=== PATIENT | male | born 1960 | race Caucasian/White ===

== ENCOUNTER 2019-09-29 10:33 | Inpatient (IN) ==
[2019-09-29] MEDS ORDERED: ASPIRIN PO ONE (10:42)
[2019-09-29] MEDS ORDERED: CARDIZEM ONE (10:46)
[2019-09-29] MEDS ORDERED: NS 1,000 ML ONE (10:47)
[2019-09-29] MEDS ORDERED: NS 1,000 ML IV ONE (10:55)
[2019-09-29] MEDS ORDERED: CARDIZEM IV ONE ×2 (10:58→11:05)
--- NOTE | 2019-09-29 11:01 | PROVIDER DOCUMENTATION ---
This chart was entered by Adrienne Ragsdale Scribe, acting as scribe for Timi Love MD. HPI-Cardiac General - General Chief Complaint: Palpitations Stated Complaint: SOB Time Seen by Provider: 09/29/19 10:52 Source: patient Allergies/Adverse Reactions: Patient Allergies Allergy/AdvReac Type Severity Reaction Status Date / Time No Known Allergies Allergy Verified 09/29/19 13:06 Home Medications: Home Medication List Medication Instructions Recorded Confirmed Last Taken Type Acetaminophen [Tylenol] 650 mg PO Q6H PRN PRN tab 09/30/19 Unknown Rx Aspirin EC 81 mg PO DAILY #90 tab 09/30/19 Unknown Rx Diltiazem C.d. [Cardizem Cd] 120 mg PO DAILY #90 cap 09/30/19 Unknown Rx - History of Present Illness-Cardiac Nature of Presenting Problem: 59 yowm presents to the ed with c/o 5 days of intermittent rt anterior chest pain under breast dull, sob and palpitations. pt sts dr chu done a stress test and echo 1 month prior and was told everything was normal. pt denies having past palpitations Location: reports: other (rt anterior under breast) Quality of Pain: reports: dull Severity in ED: moderate Onset/Duration: 5 days ago Timing: still present, intermittent Context/Activities at Onset: reports: light activity Modifying Factors: improves with: nothing. worse with: lying down Palpitation Quality: fast/pounding heart beat History of arrythmia: reports: none Recent use of:: reports: caffeine Nitro Today/Relief: reports: no nitro taken today Aspirin Treatment Today: reports: 325 mg x 1, provided by ED Prior Chest Pain/Cardiac Workup: reports: echocardiography, stress test Associated Symptoms: reports: shortness of breath. denies: back pain, diaphoresis, dizziness, fever/chills, nausea, vomiting Similar Symptoms Previously?: No Recently Seen Here or By Another Healthcare Provider: Yes (dr chu 1 month prior ) Review of Systems - Adult - REVIEW OF SYSTEMS - ADULT Constitutional: denies: chills, fever Eyes: reports: no symptoms reported Ears, Nose, Mouth & Throat: reports: no symptoms reported Cardiovascular: reports: see HPI, chest pain, palpitations. denies: edema, syncope Respiratory: reports: see HPI, shortness of breath. denies: cough, wheezing Gastrointestinal: denies: diarrhea, nausea, vomiting Genitourinary: reports: no symptoms reported Musculoskeletal: denies: back pain, neck pain Integumentary: reports: no symptoms reported Neurological: denies: dizziness/vertigo, headache/migraines Psychiatric: reports: no symptoms reported Endocrine: reports: no symptoms reported Hematologic/Lymphatic: reports: no symptoms reported Allergic/Immunologic: reports: no symptoms reported All Other Systems: Reviewed and Negative Past History - Adult - PAST MEDICAL HISTORY-ADULT Review of Records: reports: Old Records Reviewed, Nursing Assessment Review, Medications Reviewed, Social history reviewed & non-contributory. Major Childhood Illnesses: reports: denies history Cardiovascular: reports: denies history Respiratory: reports: denies history Gastrointestinal: reports: GERD Genitourinary: reports: denies history Musculoskeletal: reports: denies history Neurological: reports: denies history Psychiatric: reports: denies history Endocrine/Immune: reports: denies history Other Conditions: reports: denies history - PRIOR SURGERIES/PROCEDURES Surgical/Procedure History: reports: reviewed, not pertinent - IMMUNIZATION STATUS Childhood Immunizations: See Nurse Assessment Flu Vaccine: See Nurse Assessment - FAMILY HISTORY Family History: reviewed, not pertinent - SOCIAL HISTORY Smoking: denies Substance Use: denies Living Situation: family Physical Exam-General - PHYSICAL EXAM-ADULT Initial Vital Signs Reviewed: Yes - CONSTITUTIONAL General Appearance: appears well, alert, mild distress - EYES Eyes: PERRL/EOMI, pink conjunctivae - HEAD, EARS, NOSE, MOUTH & THROAT HENMT: moist mucous membranes, other (no teeth) - NECK Neck: non-tender, full range of motion, supple, normal inspection - RESPIRATORY Respiratory: normal breath sounds, no pleuratic chest pain, no respiratory distress, no accessory muscle use - CARDIOVASCULAR Cardiovascular: other (aflutter 151) - CHEST (BREASTS) Chest/Breast: deferred - GASTROINTESTINAL (ABDOMEN) Abdominal Exam: normal bowel sounds, non tender, soft - GENITOURINARY Male Genitalia: deferred Rectal Exam: deferred Hemoccult Exam: deferred - LYMPHATIC Lymphatic: no adenopathy - MUSCULOSKELETAL Back Exam: no CVA tenderness, no vertebral tenderness Extremity: normal range of motion, non-tender, normal gait, normal inspection - SKIN Integumentary: normal color, normal turgor, warm/dry - NEUROLOGIC Neurologic: grossly normal - PSYCHIATRIC Psych/Mental Status: normal mood/affect, normal thought content, normal thought process, oriented x 3 Progress - PLAN OF CARE/RESULTS Progress/Plan/Lab Results: Orders Category Date Time Status Admit - [facility] Routine AdmDCTranf 09/29/19 12:33 Active Cardiac Monitoring DIRECTED Care 09/29/19 10:43 Completed DVT/PE Risk Assess/Protocol [QM] ORDERED Care 09/29/19 12:33 Completed Intake and Output-Strict ORDERED Care 09/29/19 12:33 Completed Oxygen Therapy- ED Nursing DIRECTED Care 09/29/19 10:43 Completed Saline Loc NOW Care 09/29/19 10:43 Completed Vital Signs Order Q 8-HR ASSESS Care 09/29/19 12:33 Completed Z-Document. for Tele Applied ORDERED Care 09/29/19 12:35 Completed Heart Healthy Diet Diet 09/29/19 12:34 Completed CHEST-PORTABLE [RAD] Stat Exams 09/29/19 10:44 Completed CBC WITH ELECTRONIC DIFF [HEME] Stat Lab 09/29/19 10:57 Completed CBC WITH NO DIFF [HEME] Routine Lab 09/30/19 05:19 Completed CK PROFILE [SP CHEM] Stat Lab 09/29/19 10:57 Completed CK PROFILE [SP CHEM] Stat Lab 09/29/19 16:00 Completed COMPREHENSIVE METABOLIC PANEL [CHEM] Routine Lab 09/30/19 05:19 Completed COMPREHENSIVE METABOLIC PANEL [CHEM] Stat Lab 09/29/19 10:57 Completed MAGNESIUM [CHEM] Routine Lab 09/30/19 05:19 Completed MAGNESIUM [CHEM] Stat Lab 09/29/19 10:57 Completed PRO B-NATRIURETIC PEPTIDE Stat Lab 09/29/19 10:57 Completed PROTIME WITH INR [COAG] Stat Lab 09/29/19 10:57 Completed PTT [COAG] Stat Lab 09/29/19 10:57 Completed TROPONIN T HIGH SENSITIVITY Routine Lab 09/29/19 16:00 Completed TROPONIN T HIGH SENSITIVITY Stat Lab 09/29/19 10:57 Completed TSH Routine Lab 09/30/19 05:19 Completed 0.9% Sodium Chloride Inj [Ns] 1,000 ml Med 09/29/19 10:47 Discontinued .ROUTE As directed 0.9% Sodium Chloride Inj [Ns] 1,000 ml Med 09/29/19 10:55 Discontinued IV 999 mls/hr Aspirin Med 09/29/19 10:42 Discontinued 325 mg PO NOW ONE Diltiazem [Cardizem] Med 09/29/19 10:58 Discontinued 15 mg IV NOW ONE Diltiazem [Cardizem] Med 09/29/19 10:46 Discontinued 25 mg .ROUTE .STK-MED ONE Diltiazem [Cardizem] Med 09/29/19 11:05 Discontinued 5 mg IV NOW ONE Enoxaparin [Lovenox] Med 09/29/19 12:45 Discontinued 40 mg SUBQ Q24H CP/SOB/Palp >45 yrs of Age Stat Oth 09/29/19 10:42 Ordered Telemetry [OM.EQ] Routine Oth 09/29/19 12:33 Active EKG [EKG] Stat Ther 09/29/19 10:43 Draft Transfer/Admit Order [TRANSFER] Routine Transfer 09/29/19 12:35 Completed Result Diagrams: 09/30/19 05:19 09/30/19 05:19 - REASSESSMENT Reassessment #1 Time Reassessed: 11:23 Status: improving Reassessment Comment: dr love at bedside - EKG 1 Time of EKG reading by physician:: 10:46 EKG Read and Signed by:: Timi Love EKG Interpretation (*Must complete 3 of following elements*): Abnormal Rate: 150 Rhythm: atrial flutter w/2:1 AV conduction [place]: normal QRS: other (nonspecific intraventricular conduction delay) [place] Interval: normal Comments: nonspecific ST abnormality 2 Time of EKG reading by physician:: 11:17 EKG Read and Signed by:: Timi Love EKG Interpretation (*Must complete 3 of following elements*): Normal Rate: 72 Rhythm: sinus rhythm w/pac with aberrant conduction [place]: normal QRS: normal [place] Interval: normal ST Wave: normal Prior EKG Comparison: changes noted - XRAY 1 XRAY: Bilateral XRAY Study: Chest Impression: See EMR Report (IMPRESSION: Cardiomegaly. Mild increased interstit ial markings may be fibrosis. Electronically signed by Inder Wilburn 09/29/2019 11:12 AM) - CONSULTS/PCP/HOSPITALIST Notification #1 *Consult/PCP/Hospitalist*: dr chu cardiology Time Discussed: 11:09 Reason/Comments: phone consult #2 Consult: dr suarez hospitalist Time Discussed: 11:40 (is in ed at bedside) Consult Disposition: Will see in ED, Admit Departure - Departure Date of Disposition Decision: 09/28/19 Time of Disposition Decision: 04:20 DIAGNOSIS: Atypical chest pain Disposition: HOME 01 Certified Medical Emergency: Emergent Condition: Good - Critical Care Note This patient required my direct & personal management of CC.: Yes Total Time (mins): 37 Critical Care Statement: This patient required my direct personal management to treat or rule out processes, the absence of which, could potentiallly result in sudden, clinically significant life or limb threatening deterioration. Attestation - Physician/ DARIO Attestation Patient care was provided by Advanced Practice Provider:: No The physician spent face to face time with patient:: Yes Advanced Practice Provider documentation review:: Supervising physician onsite and consulted in the evaluation and care of this patient. The physician did have a face to face encounter with the patient. This chart was documented by the indicated scribe, (Adrienne Ragsdale Scribe) and accurately reflects the services I performed and decisions made by me, Timi Love MD, as attested by the provider's signature.
--- NOTE | 2019-09-29 11:15 | Diag Imaging Result Doc PS360 ---
EXAM: CHEST-PORTABLE HISTORY: sob chest pain TECHNIQUE: Single view COMPARISON: None. FINDINGS: The lungs are well expanded. The heart is enlarged. The vessels are not distended. There are mild increased interstitial markings. No effusion identified. IMPRESSION: Cardiomegaly. Mild increased interstitial markings may be fibrosis. Electronically signed by Inder Wilburn 09/29/2019 11:12 AM
--- NOTE | 2019-09-29 11:17 | EKG Report ---
Test Performed on : 09/29/2019 10:46:19 AM Test Reason : tachycardic pain Blood Pressure : / mmHG Vent. Rate : 150 BPM Atrial Rate : 300 BPM P-R Int : 000 ms QRS Dur : 118 ms QT Int : 346 ms P-R-T Axes : 000 076 064 degrees QTc Int : 546 ms Atrial flutter. with 2:1 AV conduction. Nonspecific intraventricular conduction delay Nonspecific ST abnormality Abnormal ECG No previous ECGs available Unconfirmed Result
[2019-09-29 11:24] LABS: BASO# 0.06 X1000 (0.0-0.2); BASO% 0.5 % (0.0-0.8); EOS# 0.53 X1000 (0.0-0.7); EOS% 4.7 % (0.0-10.0); HEMATOCRIT 46.5 % (42.0-52.0); HEMOGLOBIN 14.8 g/dL (14.0-18.0); IMM GRAN# 0.04 X1000 (0.0-0.04); IMM GRAN% 0.4 % (0.0-0.5); LYMPH# 3.29 X1000 (1.2-3.4); LYMPH% 29.4 % (20.5-51.1); MCH 27.5 PG (27-31); MCHC 31.8 g/dL (33-37); MCV 86.4 FL (81-99); MONO# 1.08 X1000 (0.11-0.59); MONO% 9.6 % (1.7-9.3); MPV 10.6 FL (7.4-10.4); NEUT% 55.4 % (42.2-75.2); PLT 299 X1000 (130-400); RBC 5.38 XMIL (4.7-6.1); RDW 13.9 % (11.5-14.5)
[2019-09-29 11:25] LABS: INR 0.95; PROTIME 13.2 Seconds (11.0-16.0)
[2019-09-29 11:26] LABS: PTT 24.6 Seconds (22.3-41.8)
[2019-09-29 11:31] LABS: AGAP 14; ALBUMIN 3.8 g/dL (3.5-5.0); ALKALINE PHOSPHATASE 74 U/L (32-122); BUN 14 mg/dL (8-22); CALCIUM 8.6 mg/dL (8.8-10.2); CHLORIDE 103 mmol/L (98-107); CK PROFILE 103 U/L (24-204); COSMO 281; CREATININE 0.9 mg/dL (0.7-1.2); ESTIMATED GFR > 60; GLUCOSE 117 mg/dL (70-104); GOT 16 U/L (10-34); GPT 16 U/L (10-44); POTASSIUM 4.1 mmol/L (3.5-5.1); SODIUM 140 mmol/L (136-145); TCO2 23 mmol/L (25-35); TOTAL PROTEIN 6.8 g/dL (6.3-8.3)
[2019-09-29] MEDS ORDERED: LOVENOX SUBQ SCH (12:45)
--- NOTE | 2019-09-29 14:39 | EKG Report ---
Test Performed on : 09/29/2019 2:29:16 PM Test Reason : a flutter Blood Pressure : / mmHG Vent. Rate : 080 BPM Atrial Rate : 080 BPM P-R Int : 136 ms QRS Dur : 094 ms QT Int : 392 ms P-R-T Axes : 056 016 038 degrees QTc Int : 452 ms Sinus rhythm. with premature atrial complexes. Inferior infarct , age undetermined Abnormal ECG When compared with ECG of 29-SEP-2019 11:17, (Unconfirmed) No significant change was found Confirmed by Kirk Rosenthal MD ([id number]) on 09/30/2019 2:25:49 PM
--- NOTE | 2019-09-29 14:42 | CARDIOLOGY CONSULTATION ---
DATE: 09/29/2019 A 59-year-old gentleman I had seen in the office recently and set him up for GXT and echocardiogram which were unremarkable. However for the last 2 to 3 days patient has been having episodes of increasing shortness of breath associated with right-sided chest pain and left-sided chest pain. He came to the emergency room, was noted to be in atrial flutter, was given Cardizem and subsequently converted to sinus rhythm. Patient was transferred to [facility] from [facility]. At time of my examination, patient complains of having some tightness in the right side of his chest. He has not been having any fevers, there is no chills, there is no cough with expectoration. There is no obvious palpitations he has noticed but with these symptoms he has had increasing shortness of breath. Right now since he was given medications in [place] he says he feels better, however he has some chest tightness which he has been having. His first set of cardiac enzymes was negative. ProBNP was 1994. Sodium 140, potassium 4.1, BUN 14, creatinine 0.9. WBC 11.2, hemoglobin 14.8, hematocrit 46, platelet count of 299,000. Chest x-ray was unremarkable. PAST MEDICAL HISTORY: History of tobacco abuse, gastroesophageal reflux disease. HOME MEDICATIONS: Include aspirin and omeprazole. ALLERGIES: He is not known to be allergic to any medication. REVIEW OF SYSTEMS: 14-point review of system was done. GI: There is no history of nausea, vomiting, diarrhea. There is no history of hemoptysis or melena. Central nervous system: No focal weakness to suggest a CVA, TIA. : There is no dysuria or hematuria. Respiratory: As above. PHYSICAL EXAMINATION: Vital Signs: Blood pressure was 122/88. Cardiovascular: Normal jugular venous pressure. There no thyromegaly. No carotid bruit. First and second heart sounds were heard. There was no S3 gallop. Respiratory: Normal air entry. There is no crepitations and rhonchi. Abdomen: Soft, nontender. There was no guarding or rigidity. Bowel sounds were heard. Central nervous system: Alert, was moving all 4 extremities. Examination of extremities revealed no pedal edema. HEENT: Atraumatic, normocephalic. Pupils were equal and reacting to light. ASSESSMENT AND PLAN: Mr. Dominick Cruz is a 59-year-old gentleman who has been having shortness of breath for the last 3 days associated with chest pain which is right-sided as well as left-sided, comes to the emergency room, was noted to be in atrial flutter. He converted to sinus rhythm with Cardizem. Currently he is in sinus rhythm. Still complains of right-sided chest discomfort and shortness of breath. RECOMMENDATIONS: 1. We will get a CT scan of his chest to rule out pulmonary embolism. 2. First set of cardiac enzymes were negative. We will set him up for serial cardiac enzymes. 3. As far as medications are concerned, we will put him on Cardizem 120 mg daily. If there is no pulmonary embolism and if cardiac enzymes are negative, patient can be discharged home in the morning and follow up with me in the office. His CHADS2-VASc score is 1. He is already taking aspirin. I have not made any changes. Thank you for the consult. We will follow hospital course. cc: Simeon Estrada MD
[2019-09-29] MEDS: CARDIZEM CD PO SCH (15:03)
--- NOTE | 2019-09-29 15:04 | Diag Imaging Result Doc PS360 ---
EXAM: CT ANGIOGRM PULMONARY ARTERIES 09/29/2019 HISTORY: chest pain, sob TECHNIQUE: This exam was performed using automated exposure control, adjustment of mA or kV according to patient size, and/or use of iterative reconstruction technique. COMMENT: 3-D MIPS were performed. There are no previous studies available for comparison. There are no filling defects in the pulmonary arteries. There is adenopathy particularly in the aorticopulmonary window where there is a node measuring up to 2 cm in long axis. There is subcarinal and right hilar adenopathy. There is pericardial effusion which measures up to 11 mm anteriorly. There are small bilateral pleural effusions. The aorta is not distended and there is no evidence of dissection. There is no evidence of acute bony abnormality. There is subpleural fibrosis bilaterally. There is atelectasis versus fibrosis in the costophrenic sulci particularly of the left lower lobe. The possibility of mild interstitial pulmonary edema cannot be excluded. IMPRESSION: Pericardial effusion. Interstitial pulmonary fibrosis and minimal bilateral pleural effusions. Mediastinal adenopathy. No evidence of pulmonary emboli. Electronically signed by Jamie Egan 09/29/2019 3:01 PM
--- NOTE | 2019-09-29 15:30 | EKG Report ---
Test Performed on : 09/29/2019 11:17:50 AM Test Reason : ER Blood Pressure : / mmHG Vent. Rate : 072 BPM Atrial Rate : 072 BPM P-R Int : 138 ms QRS Dur : 090 ms QT Int : 384 ms P-R-T Axes : 049 011 042 degrees QTc Int : 420 ms Sinus rhythm. with premature atrial complexes. with aberrant conduction. Otherwise normal ECG When compared with ECG of 29-SEP-2019 10:46, (Unconfirmed) Sinus rhythm. has replaced Atrial flutter. Vent. rate has decreased BY 78 BPM QRS duration has decreased ST no longer elevated in Inferior leads Non-specific change in ST segment in Lateral leads Unconfirmed Result
--- NOTE | 2019-09-29 16:35 | HISTORY AND PHYSICAL ---
CHIEF COMPLAINT: Palpitations. HISTORY OF PRESENT ILLNESS: Patient is a very pleasant 59-year-old male who presented to the hospital with 5 days of intermittent chest pain under his right chest, dull, with shortness of breath, palpitations. States that he recently had a stress test and echo done approximately a month ago by Dr. Estrada and was told everything was normal. He had not been having palpitations at that point; however, they have started. REVIEW OF SYSTEMS: Denies any fevers, chills, cough, congestion. Denies blurred vision, change in vision. Denies any focalized numbness, tingling, or weakness in his extremities. Denies dysuria, frequency, urgency. PAST MEDICAL HISTORY: Reflux. FAMILY HISTORY: Noncontributory. SOCIAL HISTORY: Does not smoke or drink. MEDICATIONS: Please see list. ALLERGIES: None. FAMILY HISTORY: Noncontributory. PHYSICAL EXAMINATION: VITAL SIGNS: Temperature 98, pulse initially 150s, atrial fibrillation with RVR, currently 90s in sinus rhythm, respiratory 20. BP 121/90, saturating 98% on room air. GENERAL: Patient is awake, pleasant, in no distress. HEENT: Normocephalic. NECK: Supple. CARDIOVASCULAR: Regular rate. CHEST: Clear. ABDOMEN: Soft. EXTREMITIES: Moves all extremities. NEUROLOGIC: No focal changes. SKIN: Warm, dry, no rashes. LABORATORY DATA: WBCs 11, most recent EKG sinus rhythm with PACs. ASSESSMENT: 1. Atrial fibrillation with rapid ventricular response, currently back in sinus rhythm. 2. Palpitations. 3. Reflux. PLAN: We are going to admit the patient to the hospital. Transfer to [facility] for Cardiology's assistance. cc: Sammy Armenta MD
[2019-09-30] MEDS ORDERED: TYLENOL PO PRN (05:20)
[2019-09-30 05:42] LABS: HEMATOCRIT 42.2 % (42.0-52.0); HEMOGLOBIN 13.7 g/dL (14.0-18.0); MCH 28.3 PG (27-31); MCHC 32.5 g/dL (33-37); MCV 87.2 FL (81-99); MPV 10.1 FL (7.4-10.4); RBC 4.84 XMIL (4.7-6.1); RDW 14.2 % (11.5-14.5); WBC 10.05 X1000 (4.8-10.8)
[2019-09-30 06:09] LABS: AGAP 12; ALBUMIN 3.1 g/dL (3.5-5.0); ALKALINE PHOSPHATASE 63 U/L (32-122); BUN 11 mg/dL (8-22); CALCIUM 8.6 mg/dL (8.8-10.2); CHLORIDE 106 mmol/L (98-107); COSMO 278; CREATININE 0.8 mg/dL (0.7-1.2); ESTIMATED GFR > 60; GLUCOSE 117 mg/dL (70-104); GOT 14 U/L (10-34); GPT 14 U/L (10-44); MAGNESIUM 2.2 mg/dL (1.5-2.7); SODIUM 139 mmol/L (136-145); TCO2 21 mmol/L (25-35); TOTAL BILIRUBIN 0.55 mg/dL (0.20-1.00); TOTAL PROTEIN 6.3 g/dL (6.3-8.3)
--- NOTE | 2019-09-30 07:27 | EKG Report ---
Test Performed on : 09/30/2019 07:09:43 AM Test Reason : a flutter Blood Pressure : / mmHG Vent. Rate : 072 BPM Atrial Rate : 072 BPM P-R Int : 150 ms QRS Dur : 096 ms QT Int : 400 ms P-R-T Axes : 033 021 037 degrees QTc Int : 438 ms Normal sinus rhythm. Inferior infarct (cited on or before 29-SEP-2019) Abnormal ECG When compared with ECG of 29-SEP-2019 14:29, (Unconfirmed) premature atrial complexes. are no longer present Confirmed by Kirk Rosenthal MD ([id number]) on 10/01/2019 5:01:04 PM
[2019-09-30 07:44] VITALS: BP 112/66
[2019-09-30] MEDS: CARDIZEM CD PO SCH (09:35)
--- NOTE | 2019-09-30 13:04 | DISCHARGE SUMMARY ---
ADMISSION DATE: 09/29/2019 DISCHARGE DATE: 09/30/2019 ADMISSION AND DISCHARGE DIAGNOSES: 1. Atrial fibrillation with a rapid ventricular rate, had converted back to sinus rhythm. 2. Palpitations. 3. Reflux. CONSULTATIONS: Cardiology. SURGERIES/PROCEDURES: None. HOSPITAL COURSE: Mr. Dominick Cruz Jr. is a 59-year-old male who presented to [place] with complaints of 5 days worth of intermittent chest pain along with some palpitations. The chest pain was dull and he had some shortness of breath along with it. He admitted to having a stress test and echocardiogram about a month prior to with Dr. Estrada, was told everything was normal. Over here, he was found to be in atrial fibrillation with RVR, but had converted back within no time to sinus rhythm and now he is stable for discharge home. DISCHARGE VITAL SIGNS: Temperature 97.8 degrees, heart rate 74, respiratory rate 18, blood pressure 112/66, O2 saturation 97% on room air. DISCHARGE LAB DATA: White blood cells 10,000, hemoglobin 13, hematocrit 42, platelet count 234,000. Sodium 139, potassium 4.0, BUN 11, creatinine 0.8, glucose 117, calcium 8.6, magnesium 2.2, bilirubin 0.55, AST 14, ALT 14. ProBNP was 1,995, albumin was 3.1. TSH was 1.31. IMAGING: Pulmonary arteriogram showed a pericardial effusion, interstitial pulmonary fibrosis, minimal bilateral pleural effusions and mediastinal adenopathy, but no PE. EKG on presentation rate of 150 with atrial flutter, 2 to 1 AV conduction. DISCHARGE MEDICATIONS: 1. Aspirin enteric-coated 81 mg p.o. daily. 2. Diltiazem 120 mg p.o. daily. 3. Tylenol 650 p.o. every 6 hours p.r.n. PHYSICIAN FOLLOWUP: Dr. Armenta and Dr. Estraad. DISCHARGE INSTRUCTIONS: If your symptoms return please seek medical attention. Take all medications as prescribed. DISCHARGE DIET: Heart healthy. DISCHARGE ACTIVITY: As tolerated. DISCHARGE DISPOSITION: Home. Dictated by TORY Goodwin for Murray Dotson MD cc: TORY Goodwin MD
== END 2019-09-30 10:57 | disposition home or self-care (01) | DRG 310 ==
LOC: P.ED 10:33 → EDIPHOLD 13:04 → SUATTDRO 13:04 → 1N 16:29
PROVIDERS: ATTEND Internal Medicine

== ENCOUNTER 2019-11-01 09:02 | Inpatient (IN) ==
--- NOTE | 2019-11-01 09:20 | PROVIDER DOCUMENTATION ---
HPI-Chest Pain - General Chief Complaint: Chest Pain Stated Complaint: CP-HEART PT Time Seen by Provider: 11/01/19 09:19 Source: patient Allergies/Adverse Reactions: Patient Allergies Allergy/AdvReac Type Severity Reaction Status Date / Time No Known Allergies Allergy Verified 09/29/19 13:06 Home Medications: Home Medication List Medication Instructions Recorded Confirmed Last Taken Type Aspirin EC 81 mg PO DAILY #90 tab 09/30/19 11/01/19 11/01/19 Rx Albuterol Sulfate [Albuterol 1 puff INHALATION BID 11/01/19 11/01/19 11/01/19 History Sulfate Hfa] Digoxin 125 mcg PO QAM 11/01/19 11/01/19 11/01/19 History Metoprolol [Lopressor] 50 mg PO DAILY 11/01/19 11/01/19 11/01/19 History Omeprazole 40 mg PO QAM 11/01/19 11/01/19 11/01/19 History - History of Present Illness-CP Nature of Presenting Problem: Patient is a 59 year old white male with history of COPD, paroxysmal atrial fibrillation, and atypical chest pain requiring admission 1 month ago who presents with worsening fever, dry cough, and 9/10 sharp left sided pleuritic chest pain for past 2-3 days. Denies exposure to Covid-19 or recent travel. Reports fever of 100.7 this am. Followed by and Dr. Estrada. Location: reports: other (left sided chest pain) Chest Pain Radiation: reports: no radiation Quality of Pain: reports: pressure, sharp Severity in ED: moderate Onset/Duration: 3 days ago Associated Symptoms: reports: fever/chills Similar Symptoms Previously?: No Recently Seen Here or By Another Healthcare Provider: Yes (several weeks ago for atrial fib) Review of Systems - Adult - REVIEW OF SYSTEMS - ADULT Constitutional: reports: chills, fever Eyes: denies: discharge Ears, Nose, Mouth & Throat: denies: throat pain Cardiovascular: reports: see HPI, chest pain Respiratory: reports: see HPI, shortness of breath Gastrointestinal: denies: abdominal pain, nausea, vomiting Genitourinary: denies: dysuria Musculoskeletal: denies: muscle aches Integumentary: denies: rash Neurological: reports: no symptoms reported Psychiatric: reports: anxiety Endocrine: reports: no symptoms reported Hematologic/Lymphatic: reports: no symptoms reported Allergic/Immunologic: reports: no symptoms reported All Other Systems: Reviewed and Negative Past History - Adult - PAST MEDICAL HISTORY-ADULT Review of Records: reports: Old Records Reviewed, Nursing Assessment Review, Medications Reviewed, Social history reviewed & non-contributory. Major Childhood Illnesses: reports: denies history Cardiovascular: reports: denies history Respiratory: reports: denies history Gastrointestinal: reports: GERD Genitourinary: reports: denies history Musculoskeletal: reports: denies history Neurological: reports: denies history Psychiatric: reports: denies history Endocrine/Immune: reports: denies history Other Conditions: reports: denies history - PRIOR SURGERIES/PROCEDURES Surgical/Procedure History: reports: reviewed, not pertinent - IMMUNIZATION STATUS Childhood Immunizations: See Nurse Assessment Flu Vaccine: See Nurse Assessment - FAMILY HISTORY Family History: reviewed, not pertinent Physical Exam-General - PHYSICAL EXAM-ADULT Initial Vital Signs Reviewed: Yes - CONSTITUTIONAL General Appearance: alert, no apparent distress, obese, other (in pain) - EYES Eyes: other (clear) - HEAD, EARS, NOSE, MOUTH & THROAT HENMT: normocephalic/atraumatic, moist mucous membranes - NECK Neck: full range of motion, supple - RESPIRATORY Respiratory: decreased breath sounds (notable decreased breath sounds in left lower lung woods with decreased excursion) - CARDIOVASCULAR Cardiovascular: regular rate, rhythm - GASTROINTESTINAL (ABDOMEN) Abdominal Exam: normal bowel sounds, non tender, soft - LYMPHATIC Lymphatic: no adenopathy - MUSCULOSKELETAL Back Exam: normal inspection, no CVA tenderness Extremity: normal range of motion, non-tender, other (no homans, no cords) Peripheral Pulses: radial (R): 2+, radial (L): 2+ - SKIN Integumentary: normal color, normal turgor, warm/dry - NEUROLOGIC Neurologic: grossly normal - PSYCHIATRIC Psych/Mental Status: oriented x 3, anxious - HEART Score HEART Score: History: Slightly Suspicious HEART Score: ECG: Normal HEART Score: Age: 45-65 Years HEART Score: Risk Factors for Atherosclerotic Disease: > or = 3 Risk Factors or History of Atherosclerotic Disease HEART Score: Troponin: < or = Normal Limit Total HEART Score:: 3 Progress - PLAN OF CARE/RESULTS Progress/Plan/Lab Results: Laboratory Results - last 24 hr 11/01/19 10:10 Coronavirus (PCR) SEE COMMENTS Orders Category Date Time Status Admit - [facility] Routine AdmDCTranf 11/01/19 11:22 Active Cardiac Monitoring DIRECTED Care 11/01/19 09:19 Completed Elevate Head of Bed DIRECTED Care 11/01/19 13:05 Active Encourage Fluids DIRECTED Care 11/01/19 13:05 Active Intake and Output-Strict Q 8-HR ASSESS Care 11/01/19 13:05 Active Isolation Precautions Setup NOW Care 11/01/19 10:24 Completed NEWS Score 2-4:Order NEWS Lactate Series NOW Care 11/01/19 09:54 Completed Nursing- Assist w/ IS as order ORDERED Care 11/01/19 13:05 Active Nursing- MD Consult Request ROUTINE Care 11/01/19 11:22 Active Saline Loc NOW Care 11/01/19 09:22 Active Turn, Cough and Deep Breathe Q2HR Care 11/01/19 13:05 Active Vital Signs Order Q 4-HR ASSESS Care 11/01/19 13:05 Active Z-Document. for Tele Applied ORDERED Care 11/01/19 13:05 Completed Physician/Provider Consults Routine Cons 11/01/19 11:22 Ordered Social Service Consult Routine Cons 11/01/19 13:05 Active Heart Healthy Diet Diet 11/01/19 11:23 Active CHEST-PORTABLE [RAD] Stat Exams 11/01/19 09:[address] ANGIOGRM PULMONARY ARTERIES [CT] Stat Exams 11/01/19 11:34 Completed BLOOD CULTURE [BLDCUL] Stat Lab 11/01/19 10:42 Results CBC WITH DIFF [HEME] Q24H Lab 11/02/19 05:50 Completed CBC WITH DIFF [HEME] Q24H Lab 11/03/19 06:00 Ordered CBC WITH DIFF [HEME] Q24H Lab 11/04/19 06:00 Ordered CBC WITH ELECTRONIC DIFF [HEME] Stat Lab 11/01/19 09:30 Completed CMP [COMPREHENSIVE METABOLIC PANEL] [CHEM] Stat Lab 11/01/19 09:30 Completed COMPREHENSIVE METABOLIC PANEL [CHEM] Q24H Lab 11/02/19 05:50 Completed COMPREHENSIVE METABOLIC PANEL [CHEM] Q24H Lab 11/03/19 06:00 Ordered COMPREHENSIVE METABOLIC PANEL [CHEM] Q24H Lab 11/04/19 06:00 Ordered D-DIMER [COAG] Stat Lab 11/01/19 09:30 Completed DIGOXIN [TDM] Stat Lab 11/01/19 09:30 Completed DIRECT STREP Stat Lab 11/01/19 09:30 Completed Flu Swab [INFLUENZA SCREEN A/B] Stat Lab 11/01/19 09:30 Completed LACTATE, PLASMA [CHEM] Lab 11/01/19 13:50 Completed LACTATE, PLASMA [CHEM] Lab 11/01/19 16:10 Completed LACTATE, PLASMA [CHEM] Q3H Lab 11/01/19 09:30 Completed MAGNESIUM [CHEM] Q24H Lab 11/02/19 05:50 Completed MAGNESIUM [CHEM] Q24H Lab 11/03/19 06:00 Ordered MAGNESIUM [CHEM] Q24H Lab 11/04/19 06:00 Ordered ALBERT COVID19 [ALBERT] Routine Lab 11/01/19 10:10 Completed SPUTUM CULTURE WITH GRAM STAIN [] Routine Lab 11/01/19 20:05 Results TROPONIN T HIGH SENSITIVITY Stat Lab 11/01/19 09:30 Completed 0.9% Sodium Chloride Inj [Ns] 1,000 ml Med 11/01/19 11:15 Discontinued .ROUTE As directed 0.9% Sodium Chloride Inj [Ns] 1,000 ml Med 11/01/19 11:22 Discontinued IV 50 mls/hr Acetaminophen [Tylenol] Med 11/01/19 11:22 Active 650 mg PO Q4H PRN PRN Albuterol Sulfate Inhaler [Ventolin Hfa] Med 11/01/19 15:00 Active 2 puff INH PI2HEPM Aspirin EC Med 11/02/19 09:00 Active 81 mg PO DAILY Azithromycin 500 mg/Ns [Zithromax 500 mg/Ns] Med 11/01/19 10:11 Discontinued 500 mg in 250 ml IV NOW Budesonide/Formoterol Inhaler [Symbicort 160/4.5 Med 11/01/19 11:30 Active Microgm Inhaler] 2 puff INH RTBID CefTRIAXONE [Rocephin] 1 gm Med 11/01/19 10:10 Discontinued 0.9% Sodium Chloride Inj [Ns] 50 ml IV NOW CefTRIAXONE [Rocephin] 1 gm Med 11/02/19 09:00 Active 0.9% Sodium Chloride Inj [Ns] 50 ml IV Q24H Digoxin [Lanoxin] Med 11/02/19 09:00 Active 125 microgm PO QAM Enoxaparin [Lovenox] Med 11/02/19 09:00 Active 40 mg SUBQ Q24H Guaifenesin E.r. [Mucinex] Med 11/01/19 11:30 Active 1,200 mg PO Q12HR Methylprednisolone Sod Succ [Solu-Medrol] Med 11/01/19 11:30 Active 40 mg IV Q12H Metoprolol Succinate E.r. [Toprol Xl] Med 11/02/19 09:00 Active 50 mg PO DAILY Metoprolol [Lopressor] Med 11/02/19 09:00 Discontinued 50 mg PO DAILY Omeprazole [Prilosec] Med 11/02/19 07:00 Discontinued 40 mg PO DAILY@0700 Incentive Spirometer Routine Ot 11/01/19 13:05 Completed MDI Treatments Stat Ot 11/01/19 11:22 Completed Oxygen Device Routine Ot 11/01/19 11:22 Completed Oxygen Device Stat Oth 11/01/19 09:21 Completed Pulse Oximetry Routine Ot 11/01/19 11:22 Completed Telemetry [OM.EQ] Routine Ot 11/01/19 13:05 Active EKG [EKG] Stat Ther 11/01/19 09:21 Draft Venous U/S Bilateral Legs Routine Ther 11/01/19 11:34 Completed Transfer/Admit Order [TRANSFER] Routine Transfer 11/01/19 11:14 Completed Result Diagrams: 11/02/19 05:50 11/02/19 05:50 - EKG 1 Time of EKG reading by physician:: 09:58 EKG Read and Signed by:: Win May Rate: 81 Rhythm: NSR [place]: normal QRS: normal RI Interval: normal ST Wave: normal Comments: no STEMI - CONSULTS/PCP/HOSPITALIST Notification #1 *Consult/PCP/Hospitalist*: Suzanne LIZ for hospitalist service Time Discussed: 10:35 Consult Disposition: Admit Departure - Departure Date of Disposition Decision: 11/01/19 Time of Disposition Decision: 12:52 DIAGNOSIS: Pleural effusion, left LLL pneumonia Qualifiers: Pneumonia type: due to unspecified organism Qualified Code(s): J18.9 - Pneumonia, unspecified organism COPD (chronic obstructive pulmonary disease) Qualifiers: COPD type: unspecified COPD Qualified Code(s): J44.9 - Chronic obstructive pul monary disease, unspecified Disposition: ADMITTED INPATIENT 09 Certified Medical Emergency: Emergent Condition: Stable - Critical Care Note This patient required my direct & personal management of CC.: No Attestation - Physician/ DARIO Attestation Patient care was provided by Advanced Practice Provider:: No The physician spent face to face time with patient:: Yes Advanced Practice Provider documentation review:: Supervising physician onsite and consulted in the evaluation and care of this patient. The physician did have a face to face encounter with the patient.
--- NOTE | 2019-11-01 09:43 | EKG Report ---
Test Performed on : 11/01/2019 09:09:25 AM Test Reason : cp Blood Pressure : / mmHG Vent. Rate : 083 BPM Atrial Rate : 083 BPM P-R Int : 138 ms QRS Dur : 092 ms QT Int : 334 ms P-R-T Axes : 049 024 020 degrees QTc Int : 392 ms Normal sinus rhythm. T wave abnormality, consider inferior ischemia Abnormal ECG When compared with ECG of 30-SEP-2019 07:09, Criteria for Inferior infarct are no longer present T wave inversion now evident in Inferior leads Nonspecific T wave abnormality now evident in Anterior leads Unconfirmed Result
--- NOTE | 2019-11-01 09:48 | Diag Imaging Result Doc PS360 ---
EXAM: CHEST-PORTABLE 11/01/2019 HISTORY: cp TECHNIQUE: AP portable upright at 0933 COMMENT: There is a left pleural effusion. There is some atelectasis or pneumonia in the left base. These findings were not present on 09/29/2019. IMPRESSION: Left pleural effusion and basilar atelectasis versus pneumonia. Electronically signed by Jamie Egan 11/01/2019 9:46 AM
[2019-11-01 10:06] LABS: BASO# 0.04 X1000 (0.0-0.2); BASO% 0.3 % (0.0-0.8); EOS# 0.07 X1000 (0.0-0.7); EOS% 0.6 % (0.0-10.0); HEMOGLOBIN 14.8 g/dL (14.0-18.0); IMM GRAN# 0.04 X1000 (0.0-0.04); IMM GRAN% 0.3 % (0.0-0.5); LYMPH# 2.22 X1000 (1.2-3.4); LYMPH% 18.1 % (20.5-51.1); MCH 27.1 PG (27-31); MCHC 31.5 g/dL (33-37); MCV 86.1 FL (81-99); MONO% 11.4 % (1.7-9.3); MPV 10.6 FL (7.4-10.4); NEUT% 69.3 % (42.2-75.2); PLT 216 X1000 (130-400); RBC 5.46 XMIL (4.7-6.1); RDW 14.9 % (11.5-14.5); WBC 12.27 X1000 (4.8-10.8)
[2019-11-01] MEDS ORDERED: ROCEPHIN 1 GM in NS 50 ML IV ONE (10:10)
[2019-11-01] MEDS ORDERED: ZITHROMAX 500 MG/NS 500 MG/250 ML IVPB IV ONE (10:11)
[2019-11-01 10:28] LABS: AGAP 12; ALB/GLOB RATIO 1.7; ALBUMIN 4.1 g/dL (3.5-5.0); ALKALINE PHOSPHATASE 82 U/L (32-122); BUN 8 mg/dL (8-22); CALCIUM 8.7 mg/dL (8.8-10.2); CHLORIDE 102 mmol/L (98-107); COSMO 273; CREATININE 0.8 mg/dL (0.7-1.2); ESTIMATED GFR > 60; GLUCOSE 114 mg/dL (70-104); GOT 19 U/L (10-34); GPT 16 U/L (10-44); POTASSIUM 4.6 mmol/L (3.5-5.1); SODIUM 137 mmol/L (136-145); TCO2 23 mmol/L (25-35); TOTAL BILIRUBIN 0.86 mg/dL (0.20-1.00); TOTAL PROTEIN 6.5 g/dL (6.3-8.3)
[2019-11-01] MEDS ORDERED: NS 1,000 ML ONE (11:15)
[2019-11-01] MEDS ORDERED: NS 1,000 ML IV SCH (11:22)
[2019-11-01] MEDS ORDERED: TYLENOL PO PRN (11:22)
[2019-11-01] MEDS: SOLU-MEDROL IV SCH ×2 (11:30→23:55)
[2019-11-01] MEDS: SYMBICORT 160/4.5 MICROGM INHALER INH SCH ×2 (11:30→20:35)
--- NOTE | 2019-11-01 12:14 | HISTORY AND PHYSICAL ---
PRIMARY CARE PROVIDER: Dr. Sammy Armenta. PRIMARY NIGHT CLERK AUDITOR: Dr. Estrada. CHIEF COMPLAINT: Shortness of breath with left chest pain and a productive cough with fever. HISTORY OF PRESENT ILLNESS: Mr. Dominick Cruz is a 59-year-old, male with a medical history of GERD, atrial flutter, hypertension, and COPD that he states he is not being treated for. He is now here with complaints of 3 days' worth of chest pain on the left side, along with shortness of breath, difficulties lying flat to sleep. The pain is worse with inspiration. Then he started having a little low-grade fever this morning of 100.7 that is subjective and a productive cough with yellow phlegm. Chest x-ray reveals that he has a left lower lobe pneumonia with some effusion. He does have trace lower extremity edema. He had a recent admission in September 2019 with a short spell of atrial flutter. For that, Dr. Estrada follows him. He is on a beta angel along with digoxin on that. We will admit him for COPD exacerbation and left lower lobe pneumonia. PAST MEDICAL HISTORY: 1. GERD. 2. Paroxysmal atrial flutter. Only had a one time event in September of 2019. No interventions needed at that time. 3. Hypertension. 4. Arthritis. 5. COPD, untreated. SURGICAL HISTORY: 1. Tonsillectomy/adenoidectomy. 2. Neck cyst removed. SOCIAL HISTORY: He is a 1 pack per day smoker. He has been smoking since the age of 12. He denies any alcohol. He smokes 1 marijuana joint on a daily basis. Denies all other illicit drug use. He is , has adult children. 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 FAMILY HISTORY: Mother, congestive heart failure. Father had an unknown cancer, when he was young. Brother had congestive heart failure. ALLERGIES: No known drug allergies. HOME MEDICATIONS: 1. Albuterol inhaler twice a day. 2. Digoxin 125 mcg p.o. daily. 3. Metoprolol 50 mg p.o. daily. 4. Omeprazole 40 mg p.o. daily. 5. Aspirin enteric-coated 81 mg p.o. daily. REVIEW OF SYSTEMS: Fourteen point review of systems are complete and all were negative for those mentioned above in the HPI. PHYSICAL EXAMINATION: VITAL SIGNS: Temperature 99.2 degrees, heart rate 85, respiratory rate 28, blood pressure 141/86, O2 saturation 94% on room air. He is now 100% on 2 L nasal cannula. He is 5 feet 9 inches tall, 180 pounds, with a BMI of 26.6. GENERAL: Mr. Dominick Cruz is a 59-year-old, male. He is in no acute distress. He is able answer questions appropriately. HEENT: Atraumatic, normocephalic. Pupils equal, round, reactive to light. Extraocular movements intact. He has full facial hair. NECK: Trachea midline. CARDIOVASCULAR: S1, S2. Regular rate and rhythm. No rubs, gallops, murmurs. He has 1+ lower extremity pitting edema. There are +2 dorsalis and radial pulses. Negative JVD or carotid bruits. PULMONARY: Clear to auscultate bilateral breath sounds. Decreased in the bases. Very fine rhonchi in the left lower base anteriorly and posteriorly. He is tolerating 2 L nasal cannula. There is no accessory muscle use or work of breathing noted. GI: Soft, nontender, nondistended. Positive bowel sounds x4. EXTREMITIES: Moves all extremities equally. Full range of motion. NEUROLOGIC: A and O x3. Follows commands. Sensory is intact. SKIN: Warm, dry, intact. LABORATORY DATA: White blood cells 12,000, hemoglobin 14, hematocrit 47, platelet count 216,000. D-dimer is 3.34. Sodium 137, potassium 4.6, BUN 8, creatinine 0.8, glucose 114, calcium 8.7. Bilirubin 0.86, AST 19, ALT 16. Troponin 11. Albumin is 4.1, lactate 0.9. MICROBIOLOGY: Blood cultures obtained. Strep is negative. Influenza A and B are negative. A test has been sent for Covid-19 testing. IMAGING: Chest x-ray, left pleural effusion and basilar atelectasis with pneumonia in the left base. EKG, normal sinus rhythm, rate 83, QTc is 392. ASSESSMENT/PLAN: 1. Community-acquired pneumonia located primarily in the left lower lobe, along with some pulmonary pleural effusion. He was given azithromycin and Rocephin in the emergency room. We will continue with the Rocephin. We will do 1 L of fluids at 50 mL an hour only. Since he is being tested for Covid-19, we will not do nebulizers but we will do inhalers, Symbicort and albuterol. We will titrate oxygen as needed. 2. Chronic obstructive pulmonary disease. He states he has it but he has not been treated for it. He currently has some acute hypoxemic respiratory failure requiring oxygen and pulmonary tuning. We will order turn, cough, deep breathe with incentive spirometer. We will consult pulmonary for any further recommendations. 3. History of paroxysmal atrial flutter. Continue his digoxin but we will get a digoxin level. We will also continue the metoprolol and aspirin. 4. Elevated D-dimer. This was actually just resulted prior to dictating so kidney function is normal. We will go ahead and order a CTA of the lungs to rule out pulmonary embolism. Lower extremities do not appear to have any swelling as far as deep venous thromboses but we will go ahead and rule that out as well. 5. Gastroesophageal reflux disease. Continue proton pump inhibitor. 6. Hypertension. He is on his beta angel. 7. Deep venous thrombosis prophylaxis. Lovenox. 8. Tobacco abuse. Cessation discussed. If needed, we can add a nicotine patch. Dictated by HUONG Goodwin for Harpal Watson MD cc: HUONG Goodwin MD Pt examined, seen with huong, pt has decreased breath sounds, some rales at left base, he is a smoker, has GERD risk factors; will continue abx/breathing treatments; and follow; pulmonary was consulted, he is being ruled out for covid, agree with above plan, counselled on tobacco abuse per Dr Hilton PEOPLES
--- NOTE | 2019-11-01 13:13 | Diag Imaging Result Doc PS360 ---
EXAM: CT ANGIOGRM PULMONARY ARTERIES INDICATION: sob; elevated ddimer TECHNIQUE: This exam was performed using automated exposure control, adjustment of mA or kV according to patient size, and/or use of iterative reconstruction technique. Thin section axial images and 3-D MIPS were obtained. COMPARISON: 09/29/2019 FINDINGS: There is no evidence of pulmonary embolism. There is no evidence of aortic dissection or aneurysm. Similar to the previous study, there is a small to moderate-sized pericardial effusion. There is no cardiomegaly. There is stable mediastinal and hilar lymphadenopathy. There is a dense airspace consolidation in the left lower lobe near the base consistent with pneumonia. There is a small left pleural effusion. There is coarse interstitial thickening bilaterally near the periphery of the lungs suggesting mild fibrosis. There is mild subsegmental atelectasis at the right lung base. Limited views of the upper abdomen are essentially unremarkable. IMPRESSION: 1.Left lower lobe pneumonia. 2.Small left effusion. 3.Stable mild fibrotic changes at the peripheries of both lungs. 4.Small to moderate-sized pericardial effusion that is similar to the previous study. 5.No evidence of pulmonary embolism. Electronically signed by Raleigh Florez 11/01/2019 1:11 PM
[2019-11-01] MEDS: ULTRAM PO PRN ×2 (13:45→21:29)
[2019-11-01] MEDS: MUCINEX PO SCH ×2 (14:19→21:13)
--- NOTE | 2019-11-01 20:32 | Extremity Venous Study ---
PROCEDURE NAME: Venous U/S Bilateral Legs - 11/01/2019 REFERRING PHYSICIAN: Joshua. READING PHYSICIAN: Blake. AIR AND WATER FILLER: Rolando. INDICATION: Leg swelling. FINDINGS: The deep and superficial veins of both lower extremities were imaged throughout their course. They are compressible and patent without thrombus. INTERPRETATION: No DVT or SVT in either lower extremity. cc: MD Nadine Mora CRNP
[2019-11-01] MEDS: VENTOLIN HFA INH SCH ×2 (20:34→21:28)
--- NOTE | 2019-11-02 01:29 | PULMONOLOGY CONSULTATION ---
DATE: 11/01/2019 REASON FOR CONSULTATION: COPD with pneumonia. HISTORY OF PRESENT ILLNESS: Mr. Cruz is a 59-year-old white male with a greater than 40 pack- year history for tobacco who continues to smoke. The patient was admitted to the hospital in September with palpitations and was diagnosed with atrial fibrillation with rapid ventricular response. The patient underwent CT scan of the thorax on 09/29/2019, which revealed some nonspecific mediastinal adenopathy, mild peripheral fibrosis worrisome for early IPF, and a small to moderate pericardial effusion. He converted back to sinus rhythm and was discharged on rate control medications. The patient reports over the last several days he has had increased left- sided chest pain, increased cough, increased yellow sputum production. He has significant gastroesophageal reflux. He had a temperature of 100.7 degrees earlier today. He was evaluated in the emergency room and underwent a CT pulmonary angiogram which reveals a new left lower lobe pneumonia, stable pericardial effusion, with no change in peripheral fibrotic infiltrates. PAST MEDICAL HISTORY: 1. Chronic obstructive pulmonary disease with ongoing tobacco use. 2. CT scan worrisome for early idiopathic pulmonary fibrosis. 3. Recently diagnosed atrial fibrillation with rapid ventricular response. 4. Recent diagnosis of small to moderate pericardial effusion. 5. Significant arthritis. SOCIAL HISTORY: Ongoing tobacco and marijuana use. No alcohol use. 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 FAMILY HISTORY: Positive for heart failure and unspecified cancer in the Father. REVIEW OF SYSTEMS: As noted in the HPI. PHYSICAL EXAMINATION: General: Reveals a well-developed, well-nourished male resting comfortably, in no distress. Vital signs: Blood pressure 110/68, heart rate 87, respiratory rate 16, oxygen saturation 95% on 2 L per nasal cannula. HEENT: Pupils are equal and reactive. Oropharynx appears clear. Neck: Supple. Chest: Reveals some decreased breath sounds left base with faint E:A changes. Cardiac: S1, S2. Abdomen: Soft. Extremities: Reveals significant synovitis in both hands with mild clubbing. LABORATORY DATA: White blood count 12.27, hemoglobin 14.8, platelet count 216,000. Sodium 137, potassium 4.6, chloride 102, bicarbonate 23, BUN 8, creatinine 0.8. IMPRESSION: A 59-year-old with 1. Left lower lobe pneumonia. 2. Mild hypoxemic respiratory failure. 3. Small to moderate pericardial effusion. 4. Significant arthritis worrisome for rheumatoid arthritis. RECOMMENDATIONS: 1. Continue current antibiotic regimen. 2. Initiate nebulizer treatments once Coronavirus 2019 status has been clarified as negative. 3. Initiate incentive spirometry. 4. Attempt to collect sputum for C and S. 5. Send a connective tissue cascade on this patient who has suspected rheumatoid arthritis. This might explain his underlying pericardial effusion. cc: rGeyson Canela MD
[2019-11-02] MEDS: PRILOSEC PO SCH ×3 (05:39→20:45)
[2019-11-02] MEDS: VENTOLIN HFA INH SCH ×4 (05:40→21:46)
[2019-11-02 06:56] LABS: BASO# 0.01 X1000 (0.0-0.2); BASO% 0.1 % (0.0-0.8); HEMATOCRIT 45.1 % (42.0-52.0); HEMOGLOBIN 14.4 g/dL (14.0-18.0); LYMPH# 1.11 X1000 (1.2-3.4); LYMPH% 6.6 % (20.5-51.1); MCH 27.6 PG (27-31); MCHC 31.9 g/dL (33-37); MCV 86.4 FL (81-99); MONO# 0.61 X1000 (0.11-0.59); MONO% 3.6 % (1.7-9.3); NEUT# 15.13 X1000 (1.4-6.5); NEUT% 89.7 % (42.2-75.2); PLT 201 X1000 (130-400); RBC 5.22 XMIL (4.7-6.1); WBC 16.86 X1000 (4.8-10.8)
[2019-11-02 07:27] LABS: AGAP 16; ALB/GLOB RATIO 1.1; ALBUMIN 3.7 g/dL (3.5-5.0); ALKALINE PHOSPHATASE 73 U/L (32-122); BUN 11 mg/dL (8-22); CALCIUM 9.1 mg/dL (8.8-10.2); CHLORIDE 105 mmol/L (98-107); COSMO 286; CREATININE 0.8 mg/dL (0.7-1.2); ESTIMATED GFR > 60; GLUCOSE 153 mg/dL (70-104); GOT 11 U/L (10-34); GPT 15 U/L (10-44); MAGNESIUM 2.3 mg/dL (1.5-2.7); POTASSIUM 4.2 mmol/L (3.5-5.1); SODIUM 142 mmol/L (136-145); TCO2 21 mmol/L (25-35); TOTAL BILIRUBIN 0.39 mg/dL (0.20-1.00); TOTAL PROTEIN 7.1 g/dL (6.3-8.3)
[2019-11-02 07:32] LABS: MONO 6 % (1-9); SEGS 94 % (42-75)
[2019-11-02] MEDS: SYMBICORT 160/4.5 MICROGM INHALER INH SCH ×2 (08:00→19:05)
[2019-11-02] MEDS: MUCINEX PO SCH ×2 (08:40→20:45)
[2019-11-02] MEDS: TOPROL XL PO SCH (08:41)
[2019-11-02] MEDS: LANOXIN PO SCH (08:41)
[2019-11-02] MEDS: ASPIRIN EC PO SCH (08:41)
[2019-11-02] MEDS: ROCEPHIN 1 GM in NS 50 ML IV SCH (08:41)
[2019-11-02] MEDS: LOVENOX SUBQ SCH (08:42)
[2019-11-02] MEDS ORDERED: LOPRESSOR PO SCH (09:00)
--- NOTE | 2019-11-02 13:10 | Diag Imaging Result Doc PS360 ---
EXAM: CHEST-PORTABLE HISTORY: Pneumonia TECHNIQUE: Single view COMPARISON: 10/30/2019 FINDINGS: The lungs are well expanded. The heart is enlarged and there is pulmonary edema with small left effusion. No consolidation. There is atelectasis in the left base. IMPRESSION: Stable chest Electronically signed by Inder Wilburn 11/02/2019 1:08 PM
[2019-11-02] MEDS ORDERED: LASIX IV ONE (13:38)
--- NOTE | 2019-11-02 14:41 | PULMONOLOGY PROGRESS NOTE ---
DATE: 11/02/2019 SUBJECTIVE: The patient is awake and alert. He reports he is feeling some better. OBJECTIVE: Vital Signs: Maximum temperature in the last 24 hours is 99.8 degrees. Blood pressure 123/69, heart rate 72, respiratory rate 20, oxygen saturation 98% on 2 L per nasal cannula. HEENT: Pupils are equal and reactive. Oropharynx appears clear. Neck is supple. Chest reveals crackles, predominantly in the left base, with slightly decreased breath sounds. Cardiac Examination: S1, S2. Abdomen is soft. Extremities are without edema. Laboratories: Microbiology culture is pending from the sputum. White blood count 16.9, hemoglobin 14.4, platelet count 201,000. Sodium 142, potassium 4.2, chloride 105, bicarbonate 21, BUN 11, creatinine 0.8. C-reactive protein is elevated at 117. IMPRESSION: A 59-year-old with: 1. Left lower lobe pneumonia. 2. Small pericardial effusion. 3. Mild hypoxemic respiratory failure. 4. Significant arthritis worrisome for rheumatoid arthritis. PLAN: 1. Continue current antibiotic regimen. 2. Continue bronchial hygiene. 3. Await connective tissue profile. 4. Await results of sputum culture. cc: Greyson Canela MD
[2019-11-02] MEDS: SOLU-MEDROL IV SCH ×2 (14:55→23:34)
--- NOTE | 2019-11-02 18:07 | PROGRESS NOTE ---
DATE: 11/02/2019 SUBJECTIVE: Patient has no major complaints. OBJECTIVE: Blood pressure is 120/73, heart rate of 66, respiratory rate 20, temperature 97.6 degrees 100% on room air.Cardiovascular: Regular rate and rhythm. Pulmonary: Bilateral breath sounds clear to auscultation. GI: Soft, nontender, nondistended. Bowel sounds are positive. He has got some rales at the bases. White count up to 16,000. Hemoglobin 14 and hematocrit 45, platelets 201,000. Basic was okay. CRP very high at 117. His coronavirus SARS-2 is negative. PROBLEM LIST: 1. Pneumonia in the left lower lobe. We will continue antibiotics. He is on Rocephin and azithromycin. Repeat chest x-ray today looks more like pulmonary edema at least and felt not to be consolidation, which he has had an echo that is pretty normal. He did not have a proBNP, so we will check that. We will continue breathing treatments and follow. I do agree with Dr. Canela. I was there when he interviewed the patient that he does have aspiration risk. He sticks his finger down his throat to relieve blockages of his esophagus, so there is something clearly pathological there. He does report today though that he had an esophageal stricture with dilation previously, so that certainly could have recurred. That was done 10 years ago. Unclear if it was Dr. Stewart or Dr. Hunter, but he will need PPI and I am going to order a swallowing study tomorrow. Barium just an upper GI series. 2. Elevated D-dimer. He has had the elevated D-dimer workup and it is negative for blood clot in lungs or legs. 3. Gastroesophageal reflux disease is not stable, he is not controlled. He needs aspiration precautions. He was educated yesterday per Dr. Canela on GERD and, like I said, we will get a barium swallow tomorrow and follow. DISPOSITION: Possible discharge in next 1 to 2 days. cc: Harpal Watson MD
[2019-11-02] MEDS: MUCOMYST 20% INH SCH (21:46)
[2019-11-03] MEDS: VENTOLIN HFA INH SCH ×2 (03:37→07:51)
[2019-11-03 07:32] LABS: HEMATOCRIT 46.9 % (42.0-52.0); HEMOGLOBIN 14.5 g/dL (14.0-18.0); IMM GRAN# 0.04 X1000 (0.0-0.04); IMM GRAN% 0.2 % (0.0-0.5); LYMPH# 1.17 X1000 (1.2-3.4); LYMPH% 6.6 % (20.5-51.1); MCH 26.8 PG (27-31); MCHC 30.9 g/dL (33-37); MCV 86.5 FL (81-99); MONO# 0.67 X1000 (0.11-0.59); MONO% 3.8 % (1.7-9.3); MPV 10.7 FL (7.4-10.4); NEUT# 15.75 X1000 (1.4-6.5); NEUT% 89.4 % (42.2-75.2); PLT 274 X1000 (130-400); RBC 5.42 XMIL (4.7-6.1); RDW 15.2 % (11.5-14.5); WBC 17.63 X1000 (4.8-10.8)
--- NOTE | 2019-11-03 07:41 | Diag Imaging Result Doc PS360 ---
EXAM: GI SERIES WITH BA SWALLOW 11/03/2019 HISTORY: dysphagia TECHNIQUE: Air contrast barium swallow, 26 images, fluoroscopy time one minute 12 seconds, dose 1372 cGy. COMMENT: The patient is able to swallow barium without difficulty. There is no evidence of stricture, fixed intraluminal filling defect or mucosal ulceration. There is a small sliding hiatal hernia without demonstrated reflux. 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 IMPRESSION: 1. Cricopharyngeal achalasia. 2. Hiatal hernia. 3. Bilateral lateral pharyngoceles. Electronically signed by Jamie Egan 11/03/2019 7:39 AM
[2019-11-03] MEDS: MUCOMYST 20% INH SCH ×2 (07:50→19:34)
[2019-11-03] MEDS: SYMBICORT 160/4.5 MICROGM INHALER INH SCH ×3 (07:52→19:33)
[2019-11-03 07:56] LABS: AGAP 14; ALB/GLOB RATIO 1.1; ALBUMIN 3.7 g/dL (3.5-5.0); ALKALINE PHOSPHATASE 73 U/L (32-122); BUN 20 mg/dL (8-22); CALCIUM 9.2 mg/dL (8.8-10.2); CHLORIDE 104 mmol/L (98-107); COSMO 284; CREATININE 0.8 mg/dL (0.7-1.2); ESTIMATED GFR > 60; GLUCOSE 139 mg/dL (70-104); GOT 10 U/L (10-34); GPT 13 U/L (10-44); MAGNESIUM 2.2 mg/dL (1.5-2.7); POTASSIUM 4.2 mmol/L (3.5-5.1); SODIUM 140 mmol/L (136-145); TCO2 22 mmol/L (25-35); TOTAL BILIRUBIN 0.34 mg/dL (0.20-1.00)
[2019-11-03] MEDS: ASPIRIN EC PO SCH (08:47)
[2019-11-03] MEDS: TOPROL XL PO SCH (08:47)
[2019-11-03] MEDS: MUCINEX PO SCH ×2 (08:47→20:16)
[2019-11-03] MEDS: LOVENOX SUBQ SCH (08:48)
[2019-11-03] MEDS: PRILOSEC PO SCH ×2 (08:48→20:16)
[2019-11-03] MEDS: ROCEPHIN 1 GM in NS 50 ML IV SCH (08:48)
[2019-11-03] MEDS: LANOXIN PO SCH (08:48)
[2019-11-03] MEDS ORDERED: DUONEB (A & A) INH PRN (10:25)
[2019-11-03] MEDS: DUONEB (A & A) INH SCH ×4 (10:43→23:08)
[2019-11-03] MEDS: SOLU-MEDROL IV SCH (12:09)
--- NOTE | 2019-11-03 16:21 | Diag Imaging Result Doc PS360 ---
EXAM: CT NECK W/CONTRAST 11/03/2019 HISTORY: pharyngococoeles TECHNIQUE: This exam was performed using automated exposure control, adjustment of mA or kV according to patient size, and/or use of iterative reconstruction technique. COMMENT: There are no previous studies available for comparison. The nasopharynx is unremarkable. The oropharynx and hypopharynx are unremarkable. The epiglottis is not enlarged. The salivary glands are symmetrical in appearance. There is no evidence of significant adenopathy. There is some subpleural interstitial fibrosis in the lung apices. No abnormal fluid collections are present. The paranasal sinuses are clear. There is no evidence of acute bony abnormality. IMPRESSION: No evidence of acute disease. Electronically signed by Jamie Egan 11/03/2019 4:19 PM
--- NOTE | 2019-11-03 18:25 | PROGRESS NOTE ---
DATE: 11/03/2019 SUBJECTIVE: Patient has no major complaints. His breathing is fine. He has not had any choking or dysphagia since he has been here. OBJECTIVE: Vitals: Blood pressure 116/69, heart rate 67, respiratory rate 20, temperature 97.4 degrees, 100% on room air. Cardiovascular: Regular rate and rhythm. Pulmonary: Bilateral breath sounds clear to auscultation. Gastrointestinal: Soft, nontender, nondistended. Bowel sounds are positive. LABORATORY DATA: White count 17, hemoglobin and hematocrit 14 and 46, platelets 274,000. Basic was normal. CRP is elevated 117. PROBLEM LIST: 1. Pneumonia left lower lobe. He is on Rocephin and azithromycin. This will be day 2. We will switch him to p.o., possibly aspiration associated. He does have some risk factors for that. 2. Dysphagia. His upper gastrointestinal series shows cricopharyngeal achalasia, but the report says mild. He also has pharyngoceles, which he does have issues with swallowing, but CT of the neck was negative so he may end up needing a gastrointestinal opinion. We will see. 3. Chronic obstructive pulmonary disease exacerbation. We will continue treatment and follow. I am going to decrease his steroids. 4. Gastrointestinal reflux disease. He has been on proton pump inhibitor and seems to be doing better. DISPOSITION: I anticipate discharge tomorrow if stable. cc: Harpal Watson MD
--- NOTE | 2019-11-03 18:47 | PULMONOLOGY PROGRESS NOTE ---
DATE: 11/03/2019 SUBJECTIVE: The patient is awake and alert. He states he feels better actually, denies any complaints at this time. OBJECTIVE: vital signs: Blood pressure is 125/70 with a heart rate of 77, respirations 16, temperature 97.5 degrees oral with O2 saturations that are 99% to 100% on room air. HENT: Head is normocephalic, atraumatic. Mucous membranes are moist. Eyes: Pupils are equal, round, react to light. Sclerae anicteric. Neck: Supple with trachea midline. Cardiovascular: Regular rate and rhythm. S1 and S2 are appreciated. No murmur. Pulmonary: He has decreased breath sounds throughout. Chest rises and falls symmetric with respiration. No increased work of breathing noted. Extremities: No clubbing, cyanosis, or edema. LABORATORIES: WBC is 17.6 with hemoglobin of 14.5, hematocrit 46.9, and platelets 274,000. Sodium 140, potassium 4.2, BUN 20, creatinine 0.8, with glucose of 139. IMPRESSION: This is a 59-year-old with: 1. Left lower lobe pneumonia. 2. Small pericardial effusion. 3. Mild hypoxemic respiratory failure. 4. Significant arthritis worrisome for rheumatoid arthritis. 5. 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 6. Small sliding hiatal hernia without demonstrated reflux. PLAN: 1. Continue his current antibiotic regimen. 2. Continue bronchial hygiene. 3. Sputum culture preliminary normal nneka. Awaiting final results. 4. CRP 117. 5. Primary team consulting ENT and obtaining a CT of the neck. 6. Gastric acid suppression with omeprazole. Dictated by TORY Martines for Greyson Canela MD cc: TORY Martines MD
[2019-11-03] MEDS: ZITHROMAX PO SCH (18:51)
[2019-11-04] MEDS: DUONEB (A & A) INH SCH ×4 (03:58→15:41)
[2019-11-04 06:11] LABS: BASO# 0.01 X1000 (0.0-0.2); BASO% 0.1 % (0.0-0.8); EOS# 0.01 X1000 (0.0-0.7); EOS% 0.1 % (0.0-10.0); HEMATOCRIT 43.8 % (42.0-52.0); HEMOGLOBIN 13.6 g/dL (14.0-18.0); IMM GRAN# 0.05 X1000 (0.0-0.04); IMM GRAN% 0.4 % (0.0-0.5); LYMPH# 2.52 X1000 (1.2-3.4); MCHC 31.1 g/dL (33-37); MCV 87.1 FL (81-99); MONO# 0.83 X1000 (0.11-0.59); MONO% 6.3 % (1.7-9.3); MPV 10.5 FL (7.4-10.4); NEUT# 9.83 X1000 (1.4-6.5); NEUT% 74.1 % (42.2-75.2); PLT 251 X1000 (130-400); RBC 5.03 XMIL (4.7-6.1); RDW 15.2 % (11.5-14.5); WBC 13.25 X1000 (4.8-10.8)
[2019-11-04 06:35] LABS: AGAP 13; ALB/GLOB RATIO 1.4; ALBUMIN 3.5 g/dL (3.5-5.0); ALKALINE PHOSPHATASE 61 U/L (32-122); BUN 20 mg/dL (8-22); CALCIUM 8.5 mg/dL (8.8-10.2); CHLORIDE 101 mmol/L (98-107); COSMO 282; CREATININE 0.8 mg/dL (0.7-1.2); ESTIMATED GFR > 60; GLUCOSE 135 mg/dL (70-104); GOT 9 U/L (10-34); GPT 13 U/L (10-44); MAGNESIUM 2.1 mg/dL (1.5-2.7); POTASSIUM 3.8 mmol/L (3.5-5.1); SODIUM 139 mmol/L (136-145); TCO2 25 mmol/L (25-35); TOTAL BILIRUBIN 0.18 mg/dL (0.20-1.00)
[2019-11-04] MEDS: MUCOMYST 20% INH SCH (08:26)
[2019-11-04] MEDS: SYMBICORT 160/4.5 MICROGM INHALER INH SCH (08:27)
[2019-11-04] MEDS ORDERED: SOLU-MEDROL IV SCH (09:00)
[2019-11-04] MEDS: ROCEPHIN 1 GM in NS 50 ML IV SCH (09:22)
[2019-11-04] MEDS: MUCINEX PO SCH (09:29)
[2019-11-04] MEDS: PRILOSEC PO SCH (09:29)
[2019-11-04] MEDS: ZITHROMAX PO SCH (09:29)
[2019-11-04] MEDS: ASPIRIN EC PO SCH (09:29)
[2019-11-04] MEDS: TOPROL XL PO SCH (09:29)
[2019-11-04] MEDS: LOVENOX SUBQ SCH (09:30)
[2019-11-04] MEDS: LANOXIN PO SCH (09:31)
[2019-11-04 16:29] VITALS: BP 139/74
--- NOTE | 2019-11-04 18:17 | DISCHARGE SUMMARY ---
ADMISSION DATE: 11/01/2019 DISCHARGE DATE: ADMISSION DIAGNOSES: 1. Left lower lobe pneumonia. 2. Dysphagia, which may be some cricopharyngeal achalasia, very mild. 3. Gastroesophageal reflux disease. 4. Possible chronic obstructive pulmonary disease. CONSULTATIONS: Dr. Canela. HOSPITAL COURSE: Briefly, this is a 59-year-old male coming in with shortness of breath and cough. He was placed on Rocephin and azithromycin. Pulmonary was consulted because there was concern of COPD, but he did have smoking history. He is a pack-a-day smoker since 12, so let us say 43 years. He was counseled against this. He was screened for COVID-19. Chest x-ray showed some pneumonia. We attempted to get a sputum sample, but I do not think it revealed anything. Flu group A, blood cultures, throat cultures and sputum cultures were all negative. We were able to wean him off oxygen. His white count went from 12 up to 17, down to 13. The rest of his labs were okay. We did do an upper GI series because of his swallowing difficulties. He says sometimes he has to stick his finger down his throat to try to correct cricopharyngeal achalasia and pharyngoceles; however, the neck CT was negative. There were no cysts, nothing, some interstitial fibrosis in the lungs. In any case, since the neck CT was negative I did not really feel that ENT needed to be involved. I think since he is improving, we could do that as an outpatient, so I will set up ENT as an outpatient as well as a GI appointment, give him aspiration precautions. Dr. Canela discussed that inpatient-andrew. DISCHARGE MEDICATIONS: We will give him a Combivent inhaler. I think he has probably had 4 days of azithromycin, prednisone taper and Omnicef for another week, in addition to digoxin 125 daily, Lopressor 50 daily, omeprazole 40 daily, aspirin 81 daily. DISCHARGE CONDITION: Stable. FOLLOWUP: Dr. Canela, Dr. Armenta, Dr. Hunter and Dr. Polk. cc: Harpal Watson MD [facility]
--- NOTE | 2019-11-05 02:01 | PULMONOLOGY PROGRESS NOTE ---
DATE: 11/04/2019 SUBJECTIVE: The patient is awake and alert. He states he feels better and he is actually hoping he can go home today. OBJECTIVE: Vital signs: Blood pressure is 134/77 with a heart rate of 80, respirations are 20, temperature is 97.7 oral with room air saturations 96% to 99%. Cardiovascular: Regular rate and rhythm. S1 and S2 are appreciated. Pulmonary: Breath sounds are decreased throughout. Chest rises and falls symmetric with respiration. No increased work of breathing noted. Gastrointestinal: Abdomen is soft, nontender, nondistended with bowel sounds in all 4 quadrants. Neurologic: He is alert and oriented times 3. Extremities: No clubbing, cyanosis or edema. LABORATORIES: WBC is 13.2 with hemoglobin of 13.6. Sodium 139. Potassium 3.8. BUN 20. Creatinine 0.8. ASSESSMENT: This is a 59-year-old gentleman with: 1. Left lower lobe pneumonia. 2. Small pericardial effusion. 3. Mild hypoxemic respiratory failure. 4. Significant arthritis worrisome for rheumatoid arthritis. 5. Small sliding hiatal hernia without demonstrated reflux. 6. Cricopharyngeal achalasia with bilateral laryngeal pharyngoceles, being followed by primary team. PLAN: 1. Continue his current antibiotic regimen. 2. Continue bronchial hygiene. 3. Sputum culture revealed normal nneka. 4. Gastric acid suppression with omeprazole. Dictated by TORY Martines for Greyson Canela MD cc: TORY Martines MD
== END 2019-11-04 18:40 | disposition home or self-care (01) | DRG 190 ==
LOC: ED 09:02 → 4N 12:23
PROVIDERS: ATTEND Internal Medicine